=== PATIENT | male | born 1985 | race African-American/Black ===

== ENCOUNTER 2017-08-10 16:33 | Emergency (ER) | payer OTHER ==
[~2017-08-10] VITALS: Ht 182.9 cm; Wt 122.5 kg
[2017-08-10 16:37] VITALS: BP 161/124
== END 2017-08-10 18:28 | disposition home or self-care (01) ==
LOC: ER 16:35
DX: Z76.5 Malingerer [conscious simulation] (principal); N50.811 Right testicular pain; F17.210 Nicotine dependence, cigarettes, uncomplicated; Z98.890 Other specified postprocedural states; Z88.0 Allergy status to penicillin; Z88.8 Allergy status to other drugs, medicaments and biological substances
CPT/HCPCS: 99283; 99406; A4606; Z7610